=== PATIENT | female | born 1980 | race Caucasian/White ===

== ENCOUNTER 2022-09-13 10:52 | Outpatient (CLI) | payer OTHER ==
--- NOTE | 2022-09-13 13:59 | XRAY Report ---
PROCEDURE: Hip w/Pelvis 1V LT INDICATIONS: BACK PAIN LUMBAR TECHNIQUE: AP pelvis with lateral view(s) of the hip(s). COMPARISON: None. FINDINGS: Bones: No fractures or dislocations. No suspicious bony lesions. Minimal degenerative changes are seen in the hips bilaterally. Soft tissues: No suspicious soft tissue calcifications or masses. 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 Reviewed by: Wild Benson MD on 09/13/2022 1:57 PM PDT Approved by: Wild Benson MD on 09/13/2022 1:57 PM PDT Station ID: [id number]
--- NOTE | 2022-09-13 14:03 | XRAY Report ---
PROCEDURE: Lumbar Spine 2 View INDICATIONS: BACK PAIN LUMBAR TECHNIQUE: 3 views of the lumbar spine were acquired. COMPARISON: None. FINDINGS: Bones: 5 [id number] vertebrae are present. There is normal bony alignment. No vertebral body compression fractures. No suspicious bony lesions. Mild multilevel facet hypertrophy. Soft tissues: Overlying bowel gas pattern is normal. No suspicious soft tissue calcifications. IMPRESSION: Mild multilevel spondylosis. No acute osseous abnormality. If symptoms persist or there is continued clinical concern, further evaluation with MRI or CT may be helpful. Reviewed by: Wild Benson MD on 09/13/2022 2:02 PM PDT Approved by: Wild Benson MD on 09/13/2022 2:02 PM PDT Station ID: [id number]
== END 2022-09-13 10:53 | disposition home or self-care (01) ==
LOC: DI.N 10:52
PROVIDERS: ATTEND Registered Nurse
DX: M16.0 Bilateral primary osteoarthritis of hip (principal); M47.816 Spondylosis without myelopathy or radiculopathy, lumbar region